=== PATIENT | female | born 1955 | race Caucasian/White ===

== ENCOUNTER 2023-01-18 17:15 | Observation (INO) | payer OTHER ==
[2023-01-18 17:27] VITALS: BMI 29.2
[2023-01-18] MEDS ORDERED: SODIUM CHLORIDE 500 ML IV STA (17:53)
[2023-01-18 18:54] LABS: BASO % 0.2 % (0-2.0); EOS % 0.2 % (0-4.5); HEMATOCRIT 38.6 % (32.4-45.2); HEMOGLOBIN 13.2 GM/dL (10.7-15.3); LYMPH % 19.1 % (8-40); MCH 30.6 pg (25.7-33.7); MCHC 34.2 g/dl (32.0-36.0); MEAN CELL VOLUME 89.6 fl (80-96); MEAN PLT VOLUME 9.4 fl (7.5-11.1); MONO % 8.1 % (3.8-10.2); NEUT % 72.4 % (42.8-82.8); PLATELET COUNT 292 10^3/uL (134-434); RBC 4.31 M/mm3 (3.60-5.2); RDW 13.5 % (11.6-15.6)
[2023-01-18 19:01] LABS: PROTHROMBIN TIME (PATIENT) 11.6 SEC (9.7-13.0)
[2023-01-18 19:04] LABS: ACTIVATED PTT 22.8 SECONDS (25.2-36.5)
[2023-01-18 19:20] LABS: ALBUMIN 3.6 g/dl (3.4-5.0); CALCIUM 9.9 mg/dL (8.5-10.1)
[2023-01-18 19:21] LABS: BLOOD UREA NITROGEN 14.8 mg/dL (7-18)
[2023-01-18 19:23] LABS: CREATININE 0.8 mg/dL (0.55-1.3)
[2023-01-18 19:25] LABS: BILIRUBIN,TOTAL 0.3 mg/dL (0.2-1); TOT PROT 7.2 g/dl (6.4-8.2)
[2023-01-19 04:10] LABS: PH,URINE 6.5 (5.0-8.0); URINE APPEARANCE CLEAR; URINE BILIRUBIN NEGATIVE (NEGATIVE); URINE COLOR YELLOW; URINE GLUCOSE (UA) NEGATIVE (NEGATIVE); URINE KETONE NEGATIVE (NEGATIVE); URINE LEUK ESTERASE NEGATIVE (NEGATIVE); URINE NITRITE NEGATIVE (NEGATIVE); URINE PROTEIN NEGATIVE (NEGATIVE); URINE UROBILINOGEN 0.2 mg/dL (0.2-1.0)
[2023-01-19 07:25] LABS: BASO % 0.2 % (0-2.0); EOS % 0.5 % (0-4.5); HEMATOCRIT 36.1 % (32.4-45.2); HEMOGLOBIN 12.4 GM/dL (10.7-15.3); LYMPH % 28.2 % (8-40); MCH 30.5 pg (25.7-33.7); MCHC 34.3 g/dl (32.0-36.0); MEAN CELL VOLUME 88.9 fl (80-96); MEAN PLT VOLUME 9.4 fl (7.5-11.1); MONO % 6.8 % (3.8-10.2); NEUT % 64.3 % (42.8-82.8); PLATELET COUNT 260 10^3/uL (134-434); RBC 4.06 M/mm3 (3.60-5.2); RDW 13.3 % (11.6-15.6); WHITE BLOOD COUNT 6.5 K/mm3 (4.0-10.0)
[2023-01-19 07:55] LABS: CALCIUM 8.8 mg/dL (8.5-10.1)
[2023-01-19 07:56] LABS: BLOOD UREA NITROGEN 12.8 mg/dL (7-18)
[2023-01-19 07:57] LABS: MAGNESIUM 1.9 mg/dL (1.8-2.4)
[2023-01-19 07:59] LABS: CREATININE 0.8 mg/dL (0.55-1.3)
[2023-01-19 08:00] LABS: BILIRUBIN,TOTAL 0.3 mg/dL (0.2-1)
[2023-01-19] MEDS: ENOXAPARIN NA (PORCINE) 40 MG/0.4 ML DISP.SYRIN SQ SCH (09:59)
[2023-01-19] MEDS ORDERED: ESCITALOPRAM OXALATE 10 MG TABLET PO SCH (10:00)
[2023-01-19] MEDS: ATENOLOL 25 MG TABLET (FP) PO SCH (13:40)
[2023-01-20 01:18] VITALS: RESP 18
[2023-01-20 09:03] VITALS: BP 135/89; PULSE 80; TEMP 98.1
[2023-01-20] MEDS: ENOXAPARIN NA (PORCINE) 40 MG/0.4 ML DISP.SYRIN SQ SCH (09:31)
[2023-01-20] MEDS: ATENOLOL 25 MG TABLET (FP) PO SCH (09:31)
[2023-01-20 10:33] LABS: BLOOD UREA NITROGEN 13.4 mg/dL (7-18); CALCIUM 9.2 mg/dL (8.5-10.1)
[2023-01-20 10:37] LABS: CREATININE 0.9 mg/dL (0.55-1.3)
[2023-01-26 18:07] LABS: RENIN ACTIVITY(PRA) 0.179 ng/mL/hr (0.167-5.380)
== END 2023-01-20 13:48 | disposition home or self-care (01) ==
LOC: JER 17:15 → JERBED 18:22 → J4S 01-19 04:25
PROVIDERS: ADMIT Internal Medicine; ATTEND Internal Medicine
PROC: 3E0337Z Introduction of Electrolytic and Water Balance Substance into Peripheral Vein, Percutaneous Approach (ICD-10-PCS; principal; 2023-01-18)
DX: I95.1 Orthostatic hypotension (principal); F41.8 Other specified anxiety disorders; R41.9 Unspecified symptoms and signs involving cognitive functions and awareness; Z88.8 Allergy status to other drugs, medicaments and biological substances
CPT/HCPCS: 0241U-QW; 36415; 76775-TC; 80048; 80053; 81003; 82088; 82533; 82550; 82962; 83605; 83735; 83835; 84244; 84439; 84443; 84481; 84484; 84703; 85025; 85610; 85730; 93005; 93010; 96360; 99285-25; G0378